=== PATIENT | female | born 1995 | race Caucasian/White ===

== ENCOUNTER 2016-07-28 19:17 | Emergency (ER) ==
[2016-07-28 19:32] VITALS: BP 135/83; TEMP 99.2; BMI 32.1
[2016-07-28] MEDS ORDERED: DEMEROL 50 MG/ML SYRINGE IM STA (19:39)
[2016-07-28] MEDS ORDERED: PHENERGAN 25 MG/ML VIAL IM STA (19:39)
--- NOTE | 2016-07-28 19:44 | ED.PDOC ---
General ED Provider: Dr. JONI MCKEON Chief Complaint: Back Pain Stated Complaint: Patient is a 21 year old female who comes to the ER with a 2 hour history of Right lower back pain that radiates to the right knee. Describes it as aching. Took 800 mg of Ibuprufen with no response. Rates the pain at 7/10 Time Seen by Physician: 19:41 Mode of Arrival: Walk-In Information Source: Patient Nursing and Triage Documentation Reviewed and Agree: Yes Musculoskeletal Complaint Exam - Back Pain Complaint/Exam Mechanism of Injury: Reports: Other (Moving activity with lifting and bending recently ) Onset/Duration: 2 hours Symptoms Are: Still present Timing: Constant Initial Severity: Severe Current Severity: Moderate Location: Reports: Discrete (Right lower back ), Radiating (To the right buttocks, back of the leg to the knee.) Character: Reports: Aching, Throbbing Aggravating: Reports: Movements, Lifting, Bending, Walking Alleviating: Reports: Rest Associated Signs and Symptoms: Reports: Numbness. Denies: Swelling, Redness, Bruising, Fever, Weakness, Tingling, Abdominal pain, Flank pain, Bladder incontinence, Bowel incontinence, Weight loss, Pain with weight bearing TAD Risk Factors: Reports: None AAA Risk Factors: Reports: None Cauda Equina Risk Factors: Reports: None Epidural Abcess Risk Factors: Reports: None Related Surgical History: Reports: None Focal Tenderness: Yes (on the right ) Paraspinal Muscle Tenderness: Yes ( on the right ) Paraspinal Muscle Spasm: Yes Scoliosis: No Lordosis: No Kyphosis: No SLR Test: Right Positive, Left Positive Hip Motion Testing Pain: Right Negative, Left Negative Focal Weakness: Present: None Focal Sensory Loss: Present: None Gait: Present: Normal Back Picture: 1 - tenderness to palpation Differential Diagnoses: Herniated Disk, Strain, Sprain Review of Systems - Review Of Systems Constitutional: Reports: No symptoms Eyes: Reports: No symptoms Ears, Nose, Mouth, Throat: Reports: No symptoms Respiratory: Reports: No symptoms Cardiac: Reports: No symptoms GI: Reports: No symptoms : Reports: No symptoms Musculoskeletal: Reports: Back pain Skin: Reports: No symptoms Neurological: Reports: Anxiety Endocrine: Reports: No symptoms Hematologic/Lymphatic: Reports: No symptoms All Other Systems: Reviewed and Negative Past Medical History - Past Medical History Previously Healthy: Yes Endocrine: Reports: None Cardiovascular: Reports: Hypertension (gestational ) Respiratory: Reports: None Hematological: Reports: Anemia Gastrointestinal: Reports: GERD Genitourinary: Reports: None Neuro/Psych: Reports: Anxiety, Depression Musculoskeletal: Reports: None Cancer: Reports: None Last Menstrual Period: 07/28/16 - Surgical History General Surgical History: Reports: Cholecystectomy, Tonsillectomy, Adenoidectomy - Family History Family History: Reports: None - Social History Smoking Status: Current every day smoker Hx Substance Use: No Alcohol Screening: None Physical Exam - Physical Exam Appearance: Obese Pain Distress: Severe Neck: Supple Respiratory: Airway patent, Breath sounds clear, Breath sounds equal, Respirations nonlabored Cardiovascular: RRR, Pulses normal, No rub, No murmur GI/: Soft, Nontender, No masses, Bowel sounds normal, No Organomegaly Critical Care Note - Critical Care Note Total Time (mins): 0 Course - Course Orders, Labs, Meds: Orders Category Date Time Status Meperidine HCl/Pf [Demerol 50 mg/ml Syringe] MEDS 07/28/16 19:39 Discontinued 50 mg IM ONCE STA Promethazine HCl [Phenergan 25 mg/ml Vial] MEDS 07/28/16 19:39 Discontinued 25 mg IM ONCE STA LUMBAR SPINE, 2 OR 3 VIEWS Stat RADS 07/28/16 19:40 Completed SACRUM & COCCYX Stat RADS 07/28/16 19:40 Completed Medications Discontinued Medications Generic Name Dose Route Start Last Admin Trade Name Freq PRN Reason Stop Dose Admin Meperidine HCl 50 mg 07/28/16 19:39 07/28/16 20:18 Demerol 50 Mg/Ml Syringe IM 07/28/16 19:40 50 mg ONCE STA Administration Promethazine HCl 25 mg 07/28/16 19:39 07/28/16 20:19 Phenergan 25 Mg/Ml Vial IM 07/28/16 19:40 25 mg ONCE STA Administration Vital Signs: Temp Pulse Resp BP Pulse Ox 07/28/16 19:18 99.2 F 90 18 135/83 98 Departure - Departure Time of Disposition: 20:29 Disposition: HOME SELF-CARE Discharge Problem: Piriformis syndrome of right side Instructions: Piriformis Syndrome (ED) Condition: Stable Pt referred to PMD for follow-up: Yes Additional Instructions: Take medications as prescribed followup with PCP in 3 days Rest Use over the counter back brace for support. Loose weight this will help your back pain Regular exercise May use a heating pad as needed. Prescriptions: Cyclobenzaprine HCl [Flexeril] 5 mg PO TID PRN #14 tablet PRN Reason: Spasms Ibuprofen [Motrin] 600 mg PO Q6H PRN #30 tablet PRN Reason: Analgesia Allergies/Adverse Reactions: Allergies amoxicillin Allergy (Verified 07/30/16 00:46) Hives, upset stomach cephalexin [From Keflex] Allergy (Verified 07/30/16 00:46) Hives, upset stomach ciprofloxacin [From Cipro] Allergy (Verified 07/30/16 00:46) Hives, upset stomach codeine Allergy (Verified 07/30/16 00:46) Hives ketorolac [From Toradol] Allergy (Verified 07/30/16 00:46) Hives Penicillins Allergy (Verified 07/30/16 00:46) Hives, upset stomach tramadol Allergy (Verified 07/30/16 00:46) Hives Home Medications: Ambulatory Orders Cyclobenzaprine HCl [Flexeril] 5 mg PO TID PRN #14 tablet 07/28/16 Ibuprofen [Motrin] 600 mg PO Q6H PRN #30 tablet 07/28/16 Disposition Discussed With: Patient, Family
--- NOTE | 2016-07-28 22:59 | DI ---
EXAM: Sacrum and coccyx three view HISTORY: Back pain with sciatica COMPARISON: None FINDINGS: Sacroiliac joints intact. Sacral arcuate lines intact. Sacrum and coccyx appear normal. No focal soft tissue abnormality. Intrauterine device present. IMPERSSION: Normal examination.
--- NOTE | 2016-07-28 22:59 | DI ---
EXAM: Lumbar spine three view HISTORY: Back pain with sciatica COMPARISON: None TECHNIQUE: Three views lumbar spine were performed FINDINGS: Sacroiliac joints intact. Sacral arcuate intact. Mild leftward curvature lumbar spine m ay be positional. Vertebral bodies normal height. No fracture. No subluxation. Intervertebral di sc spaces maintained. Surgical clips right upper and lower quadrants. Intrauterine device in place IMPRESSION: Mild leftward curvature lumbar spine may be positional. Otherwise normal examination
== END 2016-07-28 20:44 | disposition home or self-care (01) ==
LOC: ED 19:17
DX: G57.01 Lesion of sciatic nerve, right lower limb (principal)
CPT/HCPCS: 96372; 99282

== ENCOUNTER 2016-07-30 00:20 | Emergency (ER) ==
[2016-07-30 00:22] VITALS: BMI 32.1
[2016-07-30 00:46] VITALS: BP 157/87; TEMP 98.5
--- NOTE | 2016-07-30 01:59 | ED.PDOC ---
General ED Provider: Dr. MADISYN COY-ER Chief Complaint: Non-specific Complaint Stated Complaint: my back hurts and it goes down my right leg Time Seen by Physician: 00:45 Mode of Arrival: Walk-In Information Source: Patient Exam Limitations: No limitations Nursing and Triage Documentation Reviewed and Agree: Yes Musculoskeletal Complaint Exam - Back Pain Complaint/Exam Mechanism of Injury: Reports: No known trauma Onset/Duration: several weeks Symptoms Are: Still present Initial Severity: Mild Current Severity: Moderate Location: Reports: Discrete Character: Reports: Dull, Aching Aggravating: Reports: Movements, Lifting, Bending, Walking Alleviating: Reports: None Associated Signs and Symptoms: Denies: Swelling, Redness, Bruising, Fever, Weakness, Numbness, Tingling, Abdominal pain, Flank pain, Bladder incontinence, Bowel incontinence, Weight loss, Pain with weight bearing Related History: Reports: Similar episode AAA Risk Factors: Reports: None Cauda Equina Risk Factors: Reports: None Epidural Abcess Risk Factors: Reports: None Related Surgical History: Reports: None Focal Tenderness: Yes Paraspinal Muscle Tenderness: Yes Paraspinal Muscle Spasm: No Scoliosis: No Lordosis: No Kyphosis: No SLR Test: Right Negative, Left Negative Hip Motion Testing Pain: Right Negative, Left Negative Focal Weakness: Present: None Focal Sensory Loss: Present: None Gait: Present: Normal Differential Diagnoses: Sprain Review of Systems - Review Of Systems Constitutional: Reports: No symptoms Eyes: Reports: No symptoms Ears, Nose, Mouth, Throat: Reports: No symptoms Respiratory: Reports: No symptoms Cardiac: Reports: No symptoms GI: Reports: No symptoms : Reports: No symptoms Musculoskeletal: Reports: Back pain Skin: Reports: No symptoms Neurological: Reports: No symptoms Endocrine: Reports: No symptoms Hematologic/Lymphatic: Reports: No symptoms All Other Systems: Reviewed and Negative Past Medical History - Past Medical History Previously Healthy: Yes Endocrine: Reports: None Cardiovascular: Reports: None Respiratory: Reports: None Hematological: Reports: None Gastrointestinal: Reports: None Genitourinary: Reports: None Neuro/Psych: Reports: None Musculoskeletal: Reports: Back Pain Cancer: Reports: None Last Menstrual Period: now - Surgical History General Surgical History: Reports: None - Family History Family History: Reports: None - Social History Smoking Status: Current every day smoker Hx Substance Use: No Alcohol Screening: Occasionally - Immunizations Tetanus Shot up to Date: Yes Physical Exam - Physical Exam Appearance: Well-appearing, No pain distress, Well-nourished Pain Distress: Mild Eyes: CARLOS, EOMI, Conjunctiva clear ENT: Ears normal, Nose normal, Oropharynx normal Neck: Supple Respiratory: Airway patent Cardiovascular: RRR GI/: Soft, Nontender, No masses, Bowel sounds normal, No Organomegaly Musculoskeletal: Normal strength Skin: Warm, Dry, Normal color Neurological: Sensation intact, Motor intact, Reflexes intact, Cranial nerves intact, Alert, Oriented Psychiatric: Affect appropriate, Mood appropriate Interpretation - Radiology Interpretation Radiology Interpretation By: Radiologist Radiology Results: Negative Critical Care Note - Critical Care Note Total Time (mins): 0 Course - Course Vital Signs: Temp Pulse Resp BP Pulse Ox 07/30/16 00:41 98.5 F 89 20 157/87 H 99 Departure - Departure Time of Disposition: 01:59 Disposition: HOME SELF-CARE Discharge Problem: Sciatica Qualifiers: Laterality: right Qualifier Code: (M54.31) Sciatica, right side Instructions: Sciatica (ED), Lumbar Radiculopathy (ED), Lower Back Exercises ( ED) Condition: Good Pt referred to PMD for follow-up: Yes Additional Instructions: norco 7.5mg q 4hrs prn pain #20--medrol dose pack--f/u in clinic--you will need mri and p.t. Allergies/Adverse Reactions: Allergies amoxicillin Allergy (Verified 07/30/16 00:46) Hives, upset stomach cephalexin [From Keflex] Allergy (Verified 07/30/16 00:46) Hives, upset stomach ciprofloxacin [From Cipro] Allergy (Verified 07/30/16 00:46) Hives, upset stomach codeine Allergy (Verified 07/30/16 00:46) Hives ketorolac [From Toradol] Allergy (Verified 07/30/16 00:46) Hives Penicillins Allergy (Verified 07/30/16 00:46) Hives, upset stomach tramadol Allergy (Verified 07/30/16 00:46) Hives Home Medications: Ambulatory Orders Cyclobenzaprine HCl [Flexeril] 5 mg PO TID PRN #14 tablet 07/28/16 Ibuprofen [Motrin] 600 mg PO Q6H PRN #30 tablet 07/28/16 Disposition Discussed With: Patient
== END 2016-07-30 02:01 | disposition home or self-care (01) ==
LOC: ED 00:20
DX: M54.31 Sciatica, right side (principal); F17.210 Nicotine dependence, cigarettes, uncomplicated
CPT/HCPCS: 99282

== ENCOUNTER 2016-08-19 00:34 | Emergency (ER) ==
[2016-08-19 00:34] VITALS: BMI 32.1
[2016-08-19 00:44] VITALS: BP 138/88; TEMP 97.7
--- NOTE | 2016-08-19 00:45 | ED.PDOC ---
General ED Provider: Dr. JONI MCKEON Chief Complaint: Back Pain Stated Complaint: Patient is a 21 year old female who has been to the ER multple times for Right lower back pain with sciatica. has not see PCP or [facility] yet. has an APt with Ortho the of this month. worked yesterday at [employer] but can hardly work today. Time Seen by Physician: 01:09 Mode of Arrival: Walk-In Exam Limitations: No limitations Nursing and Triage Documentation Reviewed and Agree: Yes Musculoskeletal Complaint Exam - Back Pain Complaint/Exam Mechanism of Injury: Reports: No known trauma Onset/Duration: 1 month Symptoms Are: Still present Timing: Constant Initial Severity: Moderate Current Severity: Severe Location: Reports: Diffuse, Radiating Character: Reports: Aching, Throbbing, Spasmodic Aggravating: Reports: Movements, Lifting, Bending Associated Signs and Symptoms: Denies: Swelling, Redness, Bruising, Fever, Weakness, Numbness, Tingling, Abdominal pain, Flank pain, Bladder incontinence, Bowel incontinence, Weight loss, Pain with weight bearing Related History: Reports: Similar episode TAD Risk Factors: Reports: None AAA Risk Factors: Reports: None Cauda Equina Risk Factors: Reports: None Epidural Abcess Risk Factors: Reports: None Related Surgical History: Reports: None Focal Tenderness: No Paraspinal Muscle Tenderness: No Paraspinal Muscle Spasm: No Scoliosis: No Lordosis: No Kyphosis: No SLR Test: Right Positive, Left Negative Hip Motion Testing Pain: Right Negative, Left Negative Focal Weakness: Present: None Focal Sensory Loss: Present: None Gait: Present: Normal Back Picture: 1 - Back pain 2 - radiation Differential Diagnoses: Arthritis, Strain, Sprain Review of Systems - Review Of Systems Constitutional: Reports: No symptoms Eyes: Reports: No symptoms Ears, Nose, Mouth, Throat: Reports: No symptoms Respiratory: Reports: No symptoms Cardiac: Reports: No symptoms GI: Reports: No symptoms : Reports: No symptoms Musculoskeletal: Reports: Back pain Skin: Reports: No symptoms Neurological: Reports: No symptoms Endocrine: Reports: No symptoms Hematologic/Lymphatic: Reports: No symptoms All Other Systems: Reviewed and Negative Past Medical History - Past Medical History Previously Healthy: Yes Endocrine: Reports: None Cardiovascular: Reports: Hypertension Respiratory: Reports: None Hematological: Reports: Anemia Gastrointestinal: Reports: None Genitourinary: Reports: None Neuro/Psych: Reports: Anxiety, Depression Musculoskeletal: Reports: Back Pain Cancer: Reports: None - Surgical History General Surgical History: Reports: None - Family History Family History: Reports: None - Social History Smoking Status: Current every day smoker Hx Substance Use: No Alcohol Screening: Occasionally Physical Exam - Physical Exam Appearance: Ill-appearing, Well-nourished Ill-appearing: Mild Pain Distress: Moderate Eyes: CARLOS, EOMI, Conjunctiva clear ENT: Ears normal, Nose normal, Oropharynx normal Neck: Supple Respiratory: Airway patent, Breath sounds clear, Breath sounds equal, Respirations nonlabored Cardiovascular: RRR, Pulses normal, No rub, No murmur GI/: Soft, Nontender, No masses, Bowel sounds normal, No Organomegaly Musculoskeletal: Normal strength, No edema, No calf tenderness, Limited ROM Skin: Warm, Dry, Normal color Neurological: Sensation intact, Motor intact, Reflexes intact, Cranial nerves intact, Alert, Oriented Psychiatric: Affect appropriate, Mood appropriate Critical Care Note - Critical Care Note Total Time (mins): 0 Course - Course Orders, Labs, Meds: Orders Category Date Time Status Methylprednisolone Sod Succ/Pf [Solu-Medrol 125 mg] MEDS 08/19/16 00:53 Discontinued 125 mg IM ONCE STA Medications Discontinued Medications Generic Name Dose Route Start Last Admin Trade Name Freq PRN Reason Stop Dose Admin Methylprednisolone Sodium Succinate 125 mg 08/19/16 00:53 08/19/16 01:15 Solu-Medrol 125 Mg IM 08/19/16 00:54 125 mg ONCE STA Administration Vital Signs: Temp Pulse Resp BP Pulse Ox 08/19/16 00:35 97.7 F 92 H 20 138/88 97 Departure - Departure Time of Disposition: 01:13 Disposition: HOME SELF-CARE Discharge Problem: Sciatica Instructions: Piriformis Syndrome (ED) Condition: Fair Pt referred to PMD for follow-up: Yes Additional Instructions: Must follow up with the clinic for medication refill. follow up with Ortho as scheduled. take medications as prescribed. Prescriptions: Cyclobenzaprine HCl [Flexeril] 5 mg PO TID PRN #14 tablet PRN Reason: Spasms Ibuprofen [Motrin] 600 mg PO Q6H PRN #30 tablet PRN Reason: Analgesia Methylprednisolone [Medrol Dosepak] 4 mg PO DIRECTED #1 pkg Allergies/Adverse Reactions: Allergies amoxicillin Allergy (Verified 08/19/16 00:45) Hives, upset stomach cephalexin [From Keflex] Allergy (Verified 08/19/16 00:45) Hives, upset stomach ciprofloxacin [From Cipro] Allergy (Verified 08/19/16 00:45) Hives, upset stomach codeine Allergy (Verified 08/19/16 00:45) Hives ketorolac [From Toradol] Allergy (Verified 08/19/16 00:45) Hives Penicillins Allergy (Verified 08/19/16 00:45) Hives, upset stomach tramadol Allergy (Verified 08/19/16 00:45) Hives Home Medications: Ambulatory Orders Cyclobenzaprine HCl [Flexeril] 5 mg PO TID PRN #14 tablet 07/28/16 Ibuprofen [Motrin] 600 mg PO Q6H PRN #30 tablet 07/28/16 Cyclobenzaprine HCl [Flexeril] 5 mg PO TID PRN #14 tablet 08/19/16 Ibuprofen [Motrin] 600 mg PO Q6H PRN #30 tablet 08/19/16 Methylprednisolone [Medrol Dosepak] 4 mg PO DIRECTED #1 pkg 08/19/16 Disposition Discussed With: Patient
[2016-08-19] MEDS ORDERED: SOLU-MEDROL 125 MG IM STA (00:53)
== END 2016-08-19 01:33 | disposition home or self-care (01) ==
LOC: ED 00:34
DX: M54.41 Lumbago with sciatica, right side (principal); F17.210 Nicotine dependence, cigarettes, uncomplicated
CPT/HCPCS: 96372; 99283